=== PATIENT | female | born 1975 | race Caucasian/White ===

== ENCOUNTER 2023-04-06 20:49 | Emergency (ER) | payer OTHER ==
[2023-04-06] MEDS ORDERED: Sodium Chloride 0.9% 1000 ML 1,000 ML IV SCH (21:00)
[2023-04-06 21:22] LABS: Absolute Neutrophil Ct (ANC) 5.59 x10^3/uL (1.4-6.9); BASOPHIL % 0.5 % (0.0-0.4); Basophil (Absolute #) 0.04 x10^3/uL (0-0.4); Eosinophil % 1.5 % (0.00-5.0); Eosinophil (Absolute #) 0.12 x10^3/uL (0-0.5); Hematocrit 40.3 % (35-47); Hemoglobin 13.2 g/dL (12.0-16.0); IMMATURE GRAN # 0.02 x10^3u/L (0.00-0.03); IMMATURE GRAN % 0.3 % (0.00-0.4); Lymphocyte (Absolute #) 1.53 x10^3/uL (1.0-4.6); Lymphocytes % 19.7 % (24.0-44.0); Mean Cell Volume 93.9 fL (78-100); Mean Corpuscular Hemoglobin 30.8 pg (26-32); Mean Corpuscular Hgb Concent. 32.8 g/dL (32-36); Mean Platelet Volume 10.2 fL (7.5-11.0); Monocyte (Absolute #) 0.48 x10^3/uL (0.0-1.3); Monocytes % 6.2 % (0.0-12.0); Neutrophil % 71.8 % (36.0-66.0); Platelet Count 249 x10^3/uL (150-450); Red Blood Count 4.29 x10^6/uL (4.1-5.4); Red Cell Distribution Width 12.1 % (11.5-14.0); White Blood Count 7.8 x10^3/uL (4.0-10.5)
[2023-04-06 21:28] LABS: HCG URINE TEST NEGATIVE (NEGATIVE)
[2023-04-06 21:36] LABS: ALBUMIN 3.8 g/dL (3.5-5.0); ALKALINE PHOSPHATASE 55 U/L (38-126); BLOOD UREA NITROGEN 8 mg/dL (7-17); CHLORIDE 106 mmol/L (98-107); Calcium 8.3 mg/dL (8.4-10.2); Carbon Dioxide 26 mmol/L (22-30); Creatinine 1 0.71 mg/dL (0.52-1.04); EST GLOMERULAR FILTRATION RATE > 60.0 ML/MIN; Glucose 129 mg/dL (74-106); LIPASE 106 U/L (23-300); Potassium 3.4 mmol/L (3.5-5.1); SGOT/AST 28 U/L (14-36); SGPT/ALT 19 U/L (0-35); SODIUM 140 mmol/L (137-145); Total Protein 6.9 g/dL (6.3-8.2)
--- NOTE | 2023-04-06 23:12 | XRAY ---
CLINICAL HISTORY:Nausea and vomiting with upper abdominal pain. COMPARISON:None. TECHNIQUES:CT scan of the abdomen and pelvis was performed with contrast. 80 cc of Isovue 370 was given as a contrast agent. Coronal and sagittal reconstructive images were also obtained. FINDINGS: Abdomen. Mild dilatation of intrahepatic biliary radicals noted. CBD appears normal in caliber. The liver is of average size. No focal or diffuse parenchymal abnormality. The portal vein appears normal. The spleen shows multiple tiny calcific foci in its parenchyma. The pancreas and adrenal glands are unremarkable. The kidneys are unremarkable. They are normal in size and shape. No calculi or hydronephrosis. The gallbladder is distended. There is no evidence of wall thickening/ pericholecystic collection. The ascending colon, the transverse colon, and the descending colon visualized small bowel loops are unremarkable. There is no evidence of significant enlargement of the mesenteric or retroperitoneal lymph nodes. Pelvis. The urinary bladder is unremarkable. The rectosigmoid colon is unremarkable. A small 5 mm fibroid is seen at the uterine fundus. Minimal free fluid is seen adjacent to the uterus, likely physiological. Corpus luteal cyst is seen on the left side. No evidence of pelvic lymphadenopathy. No definite bony abnormalities could be depicted. IMPRESSION: 1. Mild dilatation of intrahepatic biliary radicles suggested MRCP for further evaluation. 2. Old calcified granulomas in spleen. Electronically Signed by: Hanna Stevenson MD. (04/06/2023 22:08:38 TRANSPORTATION REFRIGERATION TECHNICIAN)
--- NOTE | 2023-04-06 23:20 | ERPHSYRPT ---
- History of Present Illness Time Seen by Provider: 04/06/23 21:00 Historian: patient Patient Subjective Stated Complaint: pt states she had sudden onset of epigastric pain radiating to her back. describes as pressure and sharp, radiating. Triage Nursing Assessment: pt alert and oriented, answers questions approp. pt arrive per ambulance and ambulates from stretcher in hallway into room. skin warm and dry. abd soft, pt reports tenderness in upper abd with palpation. bowel sounds hypo. Physician History: Patient is a 47-year-old female presents to our ED via EMS for evaluation and treatment of epigastric pain. Epigastric pain started just prior to arrival. Patient currently on Macrobid x2 days for treatment of a UTI. Patient is epigastric pain described as a sharp pressure-like sensation that tends to radiate towards her back. No chest pain or shortness of breath. No nausea vomiting or diaphoresis. Symptoms are mild to moderate in intensity. No specific worsening improving factors. Patient denies a history of the same. She voices no other complaints or concerns at this time. Portions of this note were created with voice recognition technology. There may be grammatical, spelling, punctuation or sound alike errors Timing/Duration: today Activities at Onset: none Quality: aching Abdominal Pain Onset Location: epigastric Pain Radiation: no radiation Severity of Pain-Max: moderate Severity of Pain-Current: mild Modifying Factors: Improves With: nothing Associated Symptoms: denies symptoms Previous symptoms: no prior history Allergies/Adverse Reactions: No Known Drug Allergies Allergy (Verified 04/06/23 21:11) Home Medications: Nitrofurantoin Macro 100 mg [Macrobid 100MG Capsule] 100 mg PO BID [History] Rizatriptan Benzoate [Maxalt] 10 mg PO DAILY PRN PRN 04/06/23 [History] Hx Tetanus, Diphtheria Vaccination/Date Given: Yes Hx Influenza Vaccination/Date Given: No Hx Pneumococcal Vaccination/Date Given: No Immunizations Up to Date: Yes Travel Risk - International Travel Have you traveled outside of the country in past 3 weeks: No - Coronavirus Screening Are you exhibiting any of the following symptoms?: No Close contact with a COVID-19 positive Pt in past 14-21 Days: No - Vaccine Status Have you recieved a Covid-19 vaccination: Yes 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: [employer] - Vaccination Dates Date of 2cond Vaccination (if applicable): 2020 - Review of Systems Constitutional: No Symptoms, No Fever, No Chills Eyes: No Symptoms Ears, Nose, & Throat: No Symptoms Respiratory: No Symptoms, No Cough, No Dyspnea Cardiac: No Symptoms, No Chest Pain, No Edema, No Syncope Abdominal/Gastrointestinal: No Symptoms, No Abdominal Pain, No Nausea, No Vomiting, No Diarrhea Genitourinary Symptoms: No Symptoms, No Dysuria Musculoskeletal: No Symptoms, No Back Pain, No Neck Pain Skin: No Symptoms, No Rash Neurological: No Symptoms, No Dizziness, No Focal Weakness, No Sensory Changes Psychological: No Symptoms Endocrine: No Symptoms Hematologic/Lymphatic: No Symptoms Immunological/Allergic: No Symptoms All Other Systems: Reviewed and Negative - Past Medical History Neurological History: Migraines Other Medical History: on antibiotic for uti at this time - Past Surgical History Past Surgical History: Yes Musculoskeletal: Orthopedic Surgery Other Surgical History: foot surgery - Social History Smoking Status: Never smoker Exposure to second hand smoke: No Drug Use: none Patient Lives Alone: No - Female History Hx Last Menstrual Period: april 01 Hx Now: No - Nursing Vital Signs Nursing Vital Signs: Initial Vital Signs Temperature 98.7 F 04/06/23 20:50 Pulse Rate 94 H 04/06/23 20:50 Respiratory Rate 16 04/06/23 20:50 Blood Pressure 133/77 04/06/23 20:50 O2 Sat by Pulse Oximetry 95 04/06/23 20:50 Pain Scale Pain Intensity 3 - Physical Exam General Appearance: no apparent distress, alert Eye Exam: PERRL/EOMI, eyes nml inspection Ears, Nose, Throat Exam: normal ENT inspection, pharynx normal, moist mucous membranes Neck Exam: normal inspection, non-tender, supple, full range of motion Respiratory Exam: normal breath sounds, lungs clear, airway intact, No respiratory distress Cardiovascular Exam: regular rate/rhythm, normal heart sounds, normal peripheral pulses Gastrointestinal/Abdomen Exam: soft, tenderness (Mild epigastric tenderness), No mass Back Exam: normal inspection, normal range of motion, No CVA tenderness, No vertebral tenderness Extremity Exam: normal inspection, normal range of motion, pelvis stable Neurologic Exam: alert, oriented x 3, cooperative, normal mood/affect, nml cerebellar function, sensation nml, No motor deficits Skin Exam: normal color, warm, dry SpO2 Interpretation: normal SpO2: 95 O2 Delivery: Room Air - Course Nursing assessment & vital signs reviewed: Yes EKG Interpreted by Me: RATE (76), Sinus Rhythm, NORMAL AXIS, NORMAL INTERVALS - CT Exams Abdomen/Pelvis CT Interpretation: Tele-radiologist Report (Uterine fibroid, corpus luteal cyst, dilated intrahepatic ducts. Old calcified granulomas of the spleen) Ordered Tests: Active Orders 24 hr Category Date Time Status IV Insertion STAT Care 04/06/23 20:56 Active ABDOMEN AND PELVIS W CONTRAST [CT] Stat Exams 04/06/23 22:08 Completed CBC W DIFF Stat Lab 04/06/23 21:19 Completed CMP Stat Lab 04/06/23 21:19 Completed HCG QUALITATIVE, URINE Stat Lab 04/06/23 21:19 Completed LIPASE Stat Lab 04/06/23 21:19 Completed TROPONIN Q4H Lab 04/06/23 21:19 Completed TROPONIN Q4H Lab 04/07/23 01:00 Ordered TROPONIN Q4H Lab 04/07/23 05:00 Ordered Medication Summary Generic Name Dose Route Start Last Admin Trade Name Freq PRN Reason Stop Dose Admin Sodium Chloride 1,000 mls @ 100 mls/hr 04/06/23 21:00 04/06/23 21:08 Sodium Chloride 0.9% 1000 Ml IV 05/06/23 20:59 100 mls/hr .Q10H ROB Administration Lab/Rad Data: Laboratory Result Diagrams 04/06/23 21:19 04/06/23 21:19 Laboratory Results 04/06/23 04/06/23 04/06/23 Range/Units 21:19 21:19 21:19 WBC (4.0-10.5) x10^3/uL RBC (4.1-5.4) x10^6/uL Hgb (12.0-16.0) g/dL Hct (35-47) % MCV (78-100) fL MCH (26-32) pg MCHC (32-36) g/dL RDW (11.5-14.0) % Plt Count (150-450) x10^3/uL MPV (7.5-11.0) fL Gran % (36.0-66.0) % Immature Gran % (Auto) (0.00-0.4) % Nucleat RBC Rel Count (0.00-0.1) % Eos # (Auto) (0-0.5) x10^3/uL Immature Gran # (Auto) (0.00-0.03) x10^3u/L Absolute Lymphs (auto) (1.0-4.6) x10^3/uL Absolute Monos (auto) (0.0-1.3) x10^3/uL Absolute Nucleated RBC (0.00-0.01) x10^3u/L Lymphocytes % (24.0-44.0) % Monocytes % (0.0-12.0) % Eosinophils % (0.00-5.0) % Basophils % (0.0-0.4) % Absolute Granulocytes (1.4-6.9) x10^3/uL Basophils # (0-0.4) x10^3/uL Sodium 140 (137-145) mmol/L Potassium 3.4 L (3.5-5.1) mmol/L Chloride 106 (98-107) mmol/L Carbon Dioxide 26 (22-30) mmol/L Anion Gap 11.0 (5-15) MEQ/L BUN 8 (7-17) mg/dL Creatinine 0.71 (0.52-1.04) mg/dL Estimated GFR > 60.0 ML/MIN Glucose 129 H (74-106) mg/dL Calcium 8.3 L (8.4-10.2) mg/dL Total Bilirubin 0.50 (0.2-1.3) mg/dL AST 28 (14-36) U/L ALT 19 (0-35) U/L Alkaline Phosphatase 55 (38-126) U/L Troponin I < 0.012 (0.000-0.034) ng/mL Serum Total Protein 6.9 (6.3-8.2) g/dL Albumin 3.8 (3.5-5.0) g/dL Lipase 106 (23-300) U/L Urine HCG, Qual NEGATIVE (NEGATIVE) 04/06/23 Range/Units 21:19 WBC 7.8 (4.0-10.5) x10^3/uL RBC 4.29 (4.1-5.4) x10^6/uL Hgb 13.2 (12.0-16.0) g/dL Hct 40.3 (35-47) % MCV 93.9 (78-100) fL MCH 30.8 (26-32) pg MCHC 32.8 (32-36) g/dL RDW 12.1 (11.5-14.0) % Plt Count 249 (150-450) x10^3/uL MPV 10.2 (7.5-11.0) fL Gran % 71.8 H (36.0-66.0) % Immature Gran % (Auto) 0.3 (0.00-0.4) % Nucleat RBC Rel Count 0.0 (0.00-0.1) % Eos # (Auto) 0.12 (0-0.5) x10^3/uL Immature Gran # (Auto) 0.02 (0.00-0.03) x10^3u/L Absolute Lymphs (auto) 1.53 (1.0-4.6) x10^3/uL Absolute Monos (auto) 0.48 (0.0-1.3) x10^3/uL Absolute Nucleated RBC 0.00 (0.00-0.01) x10^3u/L Lymphocytes % 19.7 L (24.0-44.0) % Monocytes % 6.2 (0.0-12.0) % Eosinophils % 1.5 (0.00-5.0) % Basophils % 0.5 (0.0-0.4) % Absolute Granulocytes 5.59 (1.4-6.9) x10^3/uL Basophils # 0.04 (0-0.4) x10^3/uL Sodium (137-145) mmol/L Potassium (3.5-5.1) mmol/L Chloride (98-107) mmol/L Carbon Dioxide (22-30) mmol/L Anion Gap (5-15) MEQ/L BUN (7-17) mg/dL Creatinine (0.52-1.04) mg/dL Estimated GFR ML/MIN Glucose (74-106) mg/dL Calcium (8.4-10.2) mg/dL Total Bilirubin (0.2-1.3) mg/dL AST (14-36) U/L ALT (0-35) U/L Alkaline Phosphatase (38-126) U/L Troponin I (0.000-0.034) ng/mL Serum Total Protein (6.3-8.2) g/dL Albumin (3.5-5.0) g/dL Lipase (23-300) U/L Urine HCG, Qual (NEGATIVE) - Progress Progress: improved Progress Note: Patient is a 47-year-old female presents to emergency department for evaluation of epigastric pain. Pain started while she was at home. Pain significantly improved by the time she arrived to our ED. Patient arrived to our ED via EMS. Patient received a dose of Zofran. Patient is epigastric pain described as a pressure sharp sensation that radiates to her back. Physical exam reveals some tenderness to the epigastrium. No right upper quadrant pain. Patient concerned that it may have been her heart. Patient states her family has a significant heart history. Troponin negative. EKG negative. Other labs ordered include CBC CMP. CBC within normal limits. No leukocytosis. CMP reveals a slight hypokalemia at 3.4. Lipase negative. Patient received normal saline IV fluids. CT abdomen pelvis reveals uterine fibroid, corpus luteal cyst. There are some dilated intrahepatic ducts. Radiologist advises MRCP. No change or elevation of her liver enzymes or alkaline phosphatase. Patient currently asymptomatic. Patient patient is ready for discharge. Will discharge patient home at this time. She voices no other complaints or concerns at this time. Patient may continue her Macrobid for her active UTI. Portions of this note were created with voice recognition technology. There may be grammatical, spelling, punctuation or sound alike errors Complexity of problem addressed is moderate. No critical care time Complexity of data reviewed and analyzed is moderate. Laboratory tests and imaging study findings correlated clinically with physical exam. Physical exam and work-up findings are essentially nonremarkable. Risk of morbidity/risk mortality of patient management is moderate. Test ordered including imaging studies to differentiate cause of patient's symptoms. No need for surgical intervention at this time. No obvious gallbladder abnormalities observed on imaging study or suggested on laboratory work-up. We will send patient home. She agrees to follow-up with primary care doctor within 48 hours for re evaluation. Plan of care established via shared decision making. Time to discharge patient is approximately 10 minutes. No social determinants of health present to impede follow-up. Mother at bedside. They voiced no other complaints or concerns at this time. Portions of this note were created with voice recognition technology. There may be grammatical, spelling, punctuation or sound alike errors 04/06/23 23:44 Counseled pt/family regarding: lab results, diagnosis, need for follow-up, rad results - Departure Departure Disposition: Home Clinical Impression: Epigastric pain, Dilated intrahepatic bile duct Condition: Stable Critical Care Time: No Referrals: RAVEN STUART, STRUCTURES ENGINEER [Primary Care Provider] - Follow up/PCP as directed Additional Instructions: Discharge/Care Plan MELINA HOLLY was seen on 04/06/23 in the Emergency Room. The patient was counseled regarding Diagnosis,Lab results, Imaging studies, need for follow up and when to return to the Emergency Room. Prescriptions given: Discharge Note I have spoken with the patient and/or caregivers. I have explained the patient's condition, diagnosis and treatment plan based on the information available to me at this time. I have answered the patient's and/or caregiver's questions and addressed any concerns. The patient and/or caregivers have as good understanding of the patient's diagnosis, condition and treatment plan as can be expected at this point. The vital signs have been stable. The patient's condition is stable and appropriate for discharge from the emergency department. The patient will pursue further outpatient evaluation with the primary care physician or other designated or consulting physician as outlined in the discharge instructions. The patient and/or caregivers are agreeable to this plan of care and follow-up instructions have been explained in detail. The patient and/or caregivers have received these instruction. The patient/and or caregivers are aware that any significant change in condition or worsening of symptoms should prompt an immediate return to this or the closest emergency department or call 911.
[2023-04-07 00:08] VITALS: BP 118/87; PULSE 72; O2SAT 97
== END 2023-04-07 00:06 | disposition home or self-care (01) ==
LOC: ED 20:49
DX: R10.13 Epigastric pain (principal); K76.89 Other specified diseases of liver; Z79.899 Other long term (current) drug therapy
CPT/HCPCS: 36000; 36415; 74177; 80053; 81025; 83690; 84484; 85025; 99284